=== PATIENT | female | born 1995 ===

== ENCOUNTER 2016-10-11 17:22 | Emergency (ER) | payer MEDICAID ==
[2016-10-11 17:55] VITALS: BMI 28.1
[2016-10-11 18:10] LABS: RBC URINE 4 /hpf (0-3); URINE BACTERIA RARE (<OCC); URINE BILIRUBIN NEGATIVE (NEGATIVE); URINE BLOOD NEGATIVE (NEGATIVE); URINE COLOR YELLOW (YELLOW); URINE GLUCOSE (UA) NEG (Normal); URINE KETONE 20 mg/dL (NEGATIVE); URINE LEUKOCYTE ESTERASE NEG Leu/uL (Negative); URINE PROTEIN NEGATIVE (NEGATIVE); URINE UROBILINOGEN 0.2-1.0 mg/dL (0.2-1.0); WBC URINE 2 /hpf (0-5)
--- NOTE | 2016-10-11 19:03 | US ---
PROCEDURE: Limited ultrasound to evaluate the cervical length HISTORY: pelvic pain and pressure COMPARISON: No prior similar study for comparison TECHNIQUE: Transabdominal ultrasound examination of the pelvis was obtained. FINDINGS: The cervix measures 4.5 centimeter contains trace fluid. IMPRESSION: 4.5 centimeter cervix contains trace fluid.
[2016-10-11] MEDS ORDERED: Lactated Ringer's 1,000 ML IV ONE ×2 (20:00→22:25)
[2016-10-11 22:01] VITALS: BP 122/69; PULSE 87; RESP 17; TEMP 98.2
--- NOTE | 2016-10-12 06:44 | OBHP ---
Datetime: 10/11/2016 18:10 IP Adm Impression: , intrauterine IP Admit Plan: Observation/Evaluation Admit Comment, IP Provider: 21 yo at 26+2 wks w/ EDC 01/15/3017 c/o a lot of pressure and p ain in pelvic area since last night, also c/o pain on the right side of her abdomen. Pt reports that she is not sure if she is having ctxns. Pt denies VB, LOF, reports FM. Pt reports that she is also concerned that she had a pot cookie by accident and wants to make sure the baby is ok. PMH: Healthy PSH: Appendectomy in 2006 Meds: None Fam hx: N/c Soc hx: Pt denies tobacco, alcohol and illicit drug use except for as above [employer] hx: 13 x regular, denies STDs, abn paps POb hx: 2015 female at 38 wks All: NKDA PE: AFVSS Gen'l: pt appears comfortable lying in bed Abd: soft, NT Ext: NT Speculum: FFN done VE: closed/ thick A/P: 21 yo at 26+2 wks w/ pain and pressure in pelvic area FHT reassuring UA negative except RBC 4 H . CL 4.5 Pt given IVF and tylenol for pain Extremities - PN: Normal Abdomen - PN: Normal Neurologic - PN: Normal General - PN: Normal FHR - Baseline A Provider: 140 Membranes, Provider: Intact Contraction Comments Provider: none EGA AdmitDate IP: 26.2 Vital Signs Provider: Reviewed IP Chief Complaint: Maternal discomfort NICHD Variability Prov Fetus A: Moderate 6-25bpm NICHD Decel Fetus A IP Provider: None Dilatation, Provider: 0 Effacement, Provider: 0 Station, Provider: -3 Genitourinary Exam: Normal
--- NOTE | 2016-10-12 06:51 | OBDCSUM ---
Datetime: 10/12/2016 06:44 Discharged to, Provider: Home Follow up at, Provider: [facility] Disch Instr Activity: Normal activity Disch Instr Diet: Regular Discharge Instructions, Provider: Routine instructions given Discharge Time: 10/12/2016 06:50 Discharge Time: 10/12/2016 06:47 Follow up in weeks, Provider: October 21 as per pt Disch Referrals: None Contraception discussed, Prov: No Discharge Diagnosis Prov Other: Abdomial pain at 26+ weeks Datetime: 10/11/2016 19:36 Discharged to, Provider: Home
--- NOTE | 2016-10-12 06:52 | OBPN ---
Datetime: 10/12/2016 06:44 IP Progress Impression Other: Abdominal pain at 26+ weeks IP Progress Plan: Discharge Membranes, Provider: Intact Contraction Comments Provider: None FHR - Baseline A Provider: 130 IP Progress Note Comment: 21 yo at 26+3 wks w/ abdominal pain and pressure, now feeling much better this am Pt given PTL precutions and discharged home Pt has an appointment at [facility] on 10/21/2016 Vital Signs Provider: Reviewed NICHD Variability Prov Fetus A: Moderate 6-25bpm NICHD Decel Fetus A IP Provider: None Datetime: 10/11/2016 18:10 Dilatation, Provider: 0 Effacement, Provider: 0 Station, Provider: -3
== END 2016-10-11 19:10 | disposition home or self-care (01) ==
LOC: H.EROB2 17:22
DX: O47.03 False labor before 37 completed weeks of gestation, third trimester (principal); Z3A.26 26 weeks gestation of pregnancy

== ENCOUNTER 2016-11-28 18:45 | Inpatient (IN) | payer MEDICAID ==
[2016-11-28 19:40] VITALS: BMI 29.9
[2016-11-28] MEDS ORDERED: Lactated Ringer's 1,000 ML IV SCH ×3 (19:41→19:45)
[2016-11-28] MEDS ORDERED: Magnesium Sulfate 4 gm/100 ml 4 GM/100 ML BAG IVPB ONE (19:48)
--- NOTE | 2016-11-28 19:50 | OBHP ---
Datetime: 11/28/2016 19:42 IP Adm Impression: , intrauterine IP Admit Plan: Initiate labor protocol Admit Comment, IP Provider: 25yo edc 01/15 by lmp _ 22wk us presents w/ c/o pelvic pressure int ermiittent and perisistent since last night. She denies srom, bleeding, decresed fm. no coitus x3day s state ob hx unremarkable obhx: x1 @ 38wks shx: denies etoh, tobacco, or illicit drugs pmhx: denies pshx: appy nkda medic: none i: 33.1wks ptl p: admit begin mgso4 betamethasone ampicillin Pelvic Type - PN: Adequate Extremities - PN: Normal Abdomen - PN: Normal Lungs - PN: Normal Heart - PN: Normal Neurologic - PN: Normal HEENT - PN: Normal General - PN: Normal Presentation-Admit: Vertex FHR - Baseline A Provider: 130 Contraction Comments Provider: q2-3min Comments, ACOG Physical Exam: bedside obus EGA AdmitDate IP: 33.1 Vital Signs Provider: Reviewed IP Chief Complaint: Other NICHD Variability Prov Fetus A: Moderate 6-25bpm NICHD Accel Fetus A IP Provider: 15X15 FHR Category Provider Fetus A: Category I Genitourinary Exam: Normal Datetime: 10/12/2016 06:44 Membranes, Provider: Intact NICHD Decel Fetus A IP Provider: None
[2016-11-28] MEDS ORDERED: Betamethasone Soluspan 30 mg/5mL Inj Susp IM ONE (19:53)
[2016-11-28] MEDS ORDERED: Ampicillin 2 GM in Sodium Chloride 0.9% 100 ML IVPB ONE (20:00)
[2016-11-28 20:18] LABS: BASO % 0.1 % (0.0-2.0); EOS % 0.2 % (0.0-4.0); HEMOGLOBIN 10.8 g/dL (12.0-16.0); LYMPH # 1.8 K/uL (1.0-4.3); LYMPH % 13.1 % (20.0-40.0); MEAN CELL VOLUME 81.5 fl (81.0-99.0); MEAN CORPUSCULAR HEMOGLOBIN 26.4 pg (27.0-31.0); MEAN CORPUSCULAR HGB CONC 32.4 g/dL (33.0-37.0); MEAN PLATELET VOLUME 9.2 fl (7.2-11.7); MONO # 0.9 K/uL (0.0-0.8); MONO % 6.6 % (0.0-10.0); RBC 4.08 Mil/uL (3.80-5.20); WHITE BLOOD COUNT 13.8 K/uL (4.8-10.8)
[2016-11-28 20:31] LABS: SQUAMOUS EPITHIAL 4 /hpf (0-5); URINE BACTERIA OCC (<OCC); URINE BILIRUBIN NEGATIVE (NEGATIVE); URINE BLOOD NEGATIVE (NEGATIVE); URINE CLARITY SLIGHTY-CLOUDY (Clear); URINE COLOR YELLOW (YELLOW); URINE GLUCOSE (UA) NEG (Normal); URINE LEUKOCYTE ESTERASE TRACE Leu/uL (Negative); URINE NITRATE NEGATIVE (NEGATIVE); URINE PROTEIN NEGATIVE (NEGATIVE); URINE UROBILINOGEN 0.2-1.0 mg/dL (0.2-1.0)
[2016-11-28 20:33] LABS: ALB/GLOB RATIO 1.2 (1.0-2.1); ALBUMIN 3.8 g/dL (3.5-5.0); ALT/SGPT 28 U/L (9-52); AST/SGOT 22 U/L (14-36); BLOOD UREA NITROGEN 5 mg/dl (7-17); CALCIUM 9.4 mg/dL (8.4-10.2); GFR AFRICAN-AMERICAN > 60; GFR NON-AFRICAN AMERICAN > 60
[2016-11-28 20:53] LABS: SPECIMEN COMMENT CLOUDY
[2016-11-28] MEDS ORDERED: AMPicillin 1 GM in Sodium Chloride 0.9% 100 ML IVPB SCH (21:00)
[2016-11-28] MEDS ORDERED: Magnesium Sul 40GM/1L SW 40 GM/1,000 ML ML IV ONE ×2 (22:06→22:10)
--- NOTE | 2016-11-29 00:16 | OBADHP ---
Datetime: 11/28/2016 21:57 Admit Comment, IP Provider: 25yo edc 01/15 by lmp _ 22wk us presents w/ c/o pelvic pressure int ermiittent and perisistent since last night. She denies srom, bleeding, decresed fm. no coitus x3day s state ob hx unremarkable obhx: x1 @ 38wks shx: denies etoh, tobacco, or illicit drugs pmhx: denies pshx: appy nkda medic: none i: 33.1wks threatened ptl p: admit begin mgso4 betamethasone ampicillin pt was d/w dr esteves who recommends d/c of mgso4 following 2nd dose of betamethasone and dischar ge home if not in ptl at that time Comments, ACOG Physical Exam: ffn neg Datetime: 11/28/2016 19:42 Pelvic Type - PN: Adequate Extremities - PN: Normal Abdomen - PN: Normal Lungs - PN: Normal Heart - PN: Normal Neurologic - PN: Normal HEENT - PN: Normal General - PN: Normal Presentation-Admit: Vertex FHR - Baseline A Provider: 130 Contraction Comments Provider: q2-3min Vital Signs Provider: Reviewed IP Chief Complaint: Other NICHD Variability Prov Fetus A: Moderate 6-25bpm NICHD Accel Fetus A IP Provider: 15X15 FHR Category Provider Fetus A: Category I Genitourinary Exam: Normal EGA AdmitDate IP: 33.1 IP Adm Impression: , intrauterine IP Admit Plan: Initiate labor protocol Datetime: 10/12/2016 06:44 Membranes, Provider: Intact NICHD Decel Fetus A IP Provider: None Datetime: 10/11/2016 18:10 Dilatation, Provider: 0 Effacement, Provider: 0 Station, Provider: -3
[2016-11-29] MEDS: Ampicillin 2 GM in Sodium Chloride 0.9% 100 ML IVPB SCH ×2 (04:37→13:00)
--- NOTE | 2016-11-29 14:04 | OBDCSUM ---
Datetime: 11/29/2016 13:59 Discharged to, Provider: Home Follow up at, Provider: [facility] Disch Instr Activity: May be up to bathroom; May be up for meals Disch Instr Diet: Regular Discharge Instructions, Provider: Routine instructions given Discharge Diagnosis, Provider: False Labor - Undelivered Discharge Time: 11/29/2016 14:00 Follow up in weeks, Provider: as per schedule next week Disch Referrals: None Contraception discussed, Prov: No Disch Activity Restrictions: No exercising Discharge Comment, Provider: Return at 9pm for Betamethasone F/U in clinic next week Return to hospital if increased bleeding, pain, contractions, decreased movement Contraception after Delivery: Undecided
--- NOTE | 2016-11-29 14:04 | OBPN ---
Datetime: 11/29/2016 13:57 IP Progress Plan: Discharge Contraction Comments Provider: none FHR - Baseline A Provider: 130 IP Progress Note Comment: Patient evaluated this morning and discussed plan of care. Patient is asym ptomatic, feels well, does not feel pressure or contractions. FHR= 130 mod christine, +accels, no decels, n o contractions. NO new signs of labor. Patient has been on MagSO4 for almost 14 hours. Patient receiv ed Beta around 9pm last night. Patient does not appeart to have contractions or be in labor. Patient to be discharged, labor precautions, f/u in clinic next week for regular sche duled appointment. Patient to come back tonight for Betamethasone Vital Signs Provider: Reviewed NICHD Accel Fetus A IP Provider: 15X15 NICHD Variability Prov Fetus A: Moderate 6-25bpm NICHD Decel Fetus A IP Provider: None Datetime: 11/28/2016 19:42 Presentation-Admit: Vertex FHR Category Provider Fetus A: Category I
== END 2016-11-29 14:05 | disposition home or self-care (01) | DRG 382 ==
LOC: H.EROB2 18:45 → H.L&D 19:41
PROVIDERS: ADMIT Obstetrics & Gynecology; ATTEND Obstetrics & Gynecology
PROC: 4A1HXCZ Monitoring of Products of Conception, Cardiac Rate, External Approach (ICD-10-PCS; principal; 2016-11-28)
DX: O47.02 False labor before 37 completed weeks of gestation, second trimester (principal); Z3A.22 22 weeks gestation of pregnancy

== ENCOUNTER 2016-11-29 20:35 | Emergency (ER) | payer MEDICAID ==
[2016-11-29] MEDS ORDERED: Betamethasone Soluspan 30 mg/5mL Inj Susp IM ONE (20:58)
--- NOTE | 2016-11-29 21:59 | OBHP ---
Datetime: 11/29/2016 21:54 IP Adm Impression: , intrauterine IP Admit Plan: Observation/Evaluation; Discharge home Admit Comment, IP Provider: Patient is a @ 33.2 wks with contractions who was monito red yesterday, was given Betamethasone and MgSO4 and discharged home. patient has returned for monito ring and Betamethasone 12mg IM injection. Patient reports on/off contractions but overall feels comfo rtable, no vaginal bleeding, no leaking, +FM, no new signs of labor, no abdominal pain on palpation. Patient was given Betamethasone 12mg IM, VE=1/thick/high, ZRP=399 mod christine, +accels, no decels. TOCO= ctxning q 10 mins. Patient no additional signs of labor, will discharge home, labor p recautions, f/u in clinic next week Pelvic Type - PN: Adequate Extremities - PN: Normal Abdomen - PN: Normal Back - PN: Normal Breast - PN: Normal Lungs - PN: Normal Heart - PN: Normal Thyroid - PN: Normal Neurologic - PN: Normal HEENT - PN: Normal General - PN: Normal FHR - Baseline A Provider: 140 Contraction Comments Provider: q 10 mins EGA AdmitDate IP: 33.2 Vital Signs Provider: Reviewed; Within Normal Limits IP Chief Complaint: Uterine contractions NICHD Variability Prov Fetus A: Moderate 6-25bpm NICHD Accel Fetus A IP Provider: [id number] NICHD Decel Fetus A IP Provider: None Dilatation, Provider: 1 Effacement, Provider: thick Station, Provider: high Genitourinary Exam: Normal DTRs - PN: Normal Datetime: 11/28/2016 21:57 Comments, ACOG Physical Exam: ffn neg
--- NOTE | 2016-11-29 21:59 | OBDCSUM ---
Datetime: 11/29/2016 21:46 Discharged to, Provider: Home Follow up at, Provider: [facility] Disch Instr Activity: Normal activity Disch Instr Diet: Regular Discharge Diagnosis, Provider: False Labor - Undelivered Discharge Time: 11/29/2016 21:46 Follow up in weeks, Provider: CALL FOR APPOINTMENT SOON POSSIBLE Disch Referrals: None Disch Activity Restrictions: No lifting Discharge Comment, Provider: return if increased bleeding, ctxns, leaking Datetime: 11/29/2016 13:59 Discharged to, Provider: Home Follow up at, Provider: [facility] Disch Instr Activity: May be up to bathroom; May be up for meals Disch Instr Diet: Regular Discharge Instructions, Provider: Routine instructions given Discharge Diagnosis, Provider: False Labor - Undelivered Discharge Time: 11/29/2016 14:00 Follow up in weeks, Provider: as per schedule next week Disch Referrals: None Contraception discussed, Prov: No Disch Activity Restrictions: No exercising Discharge Comment, Provider: Return at 9pm for Betamethasone F/U in clinic next week Return to hospital if increased bleeding, pain, contractions, decreased movement Contraception after Delivery: Undecided
[2016-11-30 12:11] VITALS: BMI 32.0
== END 2016-11-29 21:50 | disposition home or self-care (01) ==
LOC: H.EROB2 20:35
DX: O47.9 False labor, unspecified (principal)

== ENCOUNTER 2016-12-03 19:32 | Emergency (ER) | payer MEDICAID ==
[2016-12-03 19:54] VITALS: BMI 29.9
[2016-12-03 20:52] LABS: SQUAMOUS EPITHIAL 1 /hpf (0-5); URINE BACTERIA OCC (<OCC); URINE BILIRUBIN NEGATIVE (NEGATIVE); URINE BLOOD NEGATIVE (NEGATIVE); URINE CLARITY SLIGHTY-CLOUDY (Clear); URINE COLOR YELLOW (YELLOW); URINE GLUCOSE (UA) NEG (Normal); URINE LEUKOCYTE ESTERASE TRACE Leu/uL (Negative); URINE NITRATE NEGATIVE (NEGATIVE); URINE PROTEIN NEGATIVE (NEGATIVE); URINE UROBILINOGEN 0.2-1.0 mg/dL (0.2-1.0)
--- NOTE | 2016-12-03 20:53 | OBHP ---
Datetime: 12/03/2016 20:25 IP Adm Impression: , intrauterine ; No Active Labor; Intact Membranes IP Admit Plan: Observation/Evaluation Admit Comment, IP Provider: 21yo IUP at 33+w 6d (EDC Jan 15) c/o lower abd pain since earli er today. nonradiating; no medds taken... pain is similar to last week. She came and was admitted, given MgSO4 and steroids. No medsd given to go home with. She ranulfo having intercourse past 24h PNC: [facility] (undocumented) PMH: denies PSH: denies NKA POBH: x 1 uncomplicated - 38w PGYNH: denies STD A: IUP at 33w threatened PTL S/P two dose Steroids last week PLAN: IVF check UA and FFN discussion with patient about condition, management and treatment...she understood and her questio ns answered Pelvic Type - PN: Adequate Extremities - PN: Normal Abdomen - PN: Normal Back - PN: Normal Breast - PN: Not Done Lungs - PN: Normal Heart - PN: Normal Thyroid - PN: Normal Neurologic - PN: Normal HEENT - PN: Normal General - PN: Normal Presentation-Admit: Vertex IP Fetus A Comments: Sonogram ceph FHR - Baseline A Provider: 120 Membranes, Provider: Intact Contraction Comments Provider: occ Comments, ACOG Physical Exam: SSE: no discharge Cx closed SVE external os 1cm internal closed ROS: General: no weakness; no fatigue HEENT: no SALINAS; no visual dist CV: no CP no palpitations Resp: no cough no SOB GI: no N/V/D : No F/U/D Pool Provider: Negative IP Hx Assessment: Undocumented [facility] EGA AdmitDate IP: 33.6 IP Chief Complaint: Uterine contractions NICHD Variability Prov Fetus A: Moderate 6-25bpm NICHD Accel Fetus A IP Provider: [id number] FHR Category Provider Fetus A: Category I NICHD Decel Fetus A IP Provider: None Dilatation, Provider: 0 Effacement, Provider: 0 Station, Provider: high Genitourinary Exam: Normal DTRs - PN: Normal
[2016-12-03] MEDS: Lactated Ringer's 1,000 ML IV SCH ×2 (21:00→21:57)
--- NOTE | 2016-12-03 23:29 | OBDCSUM ---
Datetime: 12/03/2016 22:23 Discharged to, Provider: Home Follow up at, Provider: [facility] Disch Instr Activity: Normal activity Disch Instr Diet: Regular Discharge Instructions, Provider: Routine instructions given Discharge Diagnosis, Provider: False Labor - Undelivered Discharge Time: 12/03/2016 22:24 Follow up in weeks, Provider: coming friday as scheduled Disch Referrals: None Contraception discussed, Prov: No Disch Activity Restrictions: No lifting; Minimize stair-climbing; No sexual activity; Nothing in vag tito - [employer], tampons, douche Discharge Comment, Provider: FFN and UA neg
== END 2016-12-03 22:35 | disposition home or self-care (01) ==
LOC: H.EROB2 19:32 → H.EROB 19:47 → H.EROB2 22:35
DX: O47.03 False labor before 37 completed weeks of gestation, third trimester (principal); Z3A.33 33 weeks gestation of pregnancy; O09.93 Supervision of high risk pregnancy, unspecified, third trimester

== ENCOUNTER 2016-12-30 04:11 | Emergency (ER) | payer MEDICAID ==
--- NOTE | 2016-12-30 08:46 | OBDCSUM ---
Datetime: 12/30/2016 07:40 Discharged to, Provider: Home Follow up at, Provider: [facility] Disch Instr Activity: Normal activity Disch Instr Diet: Regular Discharge Diagnosis, Provider: False Labor - Undelivered Discharge Time: 12/30/2016 07:44 Follow up in weeks, Provider: 01/02/17 Disch Referrals: None
--- NOTE | 2016-12-30 08:46 | OBHP ---
Datetime: 12/30/2016 08:33 IP Adm Impression: Term, intrauterine IP Admit Plan: Observation/Evaluation; Discharge home Admit Comment, IP Provider: Patient is a @ 37.5 wks with back pain and lower abdominal cramp s. Patient denies vaginal bleeding, +FM, no leaking. VE=3-4/70/-3, unchanged after a few hours. FHR = 125 mod christine, +accels, no decels. TOCO = ctxning q 8-10 mins. Patient observed for a few hours and co ntractions resolved. Patient does not appear to be in labor, will discharge home, discharge instructi ons reviewed Pelvic Type - PN: Adequate Extremities - PN: Normal Abdomen - PN: Normal Back - PN: Normal Breast - PN: Normal Lungs - PN: Normal Heart - PN: Normal Thyroid - PN: Normal Neurologic - PN: Normal HEENT - PN: Normal General - PN: Normal FHR - Baseline A Provider: 125 Contraction Comments Provider: q 8-10 mins EGA AdmitDate IP: 37.5 Vital Signs Provider: Reviewed; Within Normal Limits IP Chief Complaint: Uterine contractions NICHD Variability Prov Fetus A: Moderate 6-25bpm NICHD Accel Fetus A IP Provider: [id number] NICHD Decel Fetus A IP Provider: None Dilatation, Provider: 3-4 Effacement, Provider: 70 Station, Provider: -3 Genitourinary Exam: Normal DTRs - PN: Normal
[2016-12-30 13:03] VITALS: BP 102/71; PULSE 76; RESP 18; TEMP 97.2
== END 2016-12-30 07:40 | disposition home or self-care (01) ==
LOC: H.EROB2 04:11
DX: O47.1 False labor at or after 37 completed weeks of gestation (principal); Z3A.37 37 weeks gestation of pregnancy

== ENCOUNTER 2016-12-30 23:12 | Inpatient (IN) | payer MEDICAID ==
[2016-12-31] MEDS ORDERED: Lactated Ringer's 1,000 ML IV SCH ×2 (00:30)
[2016-12-31 00:48] VITALS: RESP 16; TEMP 98.4
[2016-12-31 02:43] LABS: HEMOGLOBIN 10.3 g/dL (12.0-16.0); MEAN CELL VOLUME 80.4 fl (81.0-99.0); MEAN CORPUSCULAR HEMOGLOBIN 26.8 pg (27.0-31.0); MEAN CORPUSCULAR HGB CONC 33.4 g/dL (33.0-37.0); RBC 3.82 Mil/uL (3.80-5.20); RED CELL DISTRIBUTION WIDTH 15.8 % (11.5-14.5); WHITE BLOOD COUNT 9.1 K/uL (4.8-10.8)
--- NOTE | 2016-12-31 05:18 | OBADHP ---
Datetime: 12/31/2016 01:54 Pelvic Type - PN: Adequate Extremities - PN: Normal Abdomen - PN: Normal Back - PN: Normal Lungs - PN: Normal Heart - PN: Normal Thyroid - PN: Normal Neurologic - PN: Normal HEENT - PN: Normal General - PN: Normal FHR - Baseline A Provider: 144 Membranes, Provider: Intact Contraction Comments Provider: 6-8mi Vital Signs Provider: Reviewed IP Chief Complaint: Uterine contractions NICHD Variability Prov Fetus A: Moderate 6-25bpm NICHD Accel Fetus A IP Provider: 15X15 FHR Category Provider Fetus A: Category I NICHD Decel Fetus A IP Provider: None Dilatation, Provider: 4 Effacement, Provider: 60 Station, Provider: -2 Genitourinary Exam: Normal EGA AdmitDate IP: 37.6 IP Adm Impression: Active labor IP Admit Plan: Admit to unit; Initiate labor protocol Datetime: 12/31/2016 01:37 Admit Comment, IP Provider: A 21 y/o F, , [place] 37.6 and KYLEIGH 01/15/17 by her last LMP/US, comes to t he ED c/o ctx and pain 7/10 in severity. pt feels nauseated since dinner. pt feels "cold like symptom es" and runny nose since morning. pt denies fever, chills, SOB or chest pain -negative LOF/ + small amount BV/+CTX/ +FM PNC: [facility] PNI: no issues with so far POBH: 1xSNVD, term PGYN:none U/S- last us at 22 weeks PMH: none PSH: appendectomy Meds: none, stopped PNV few months back due to Nausea associated with PNV All: none SH: no alcohol or smoking or drug use VS: 141/77 FHR: 144 PE: unremarkable 4-5cm dil, 60%,-2 A: A 21 y/o F, , [place] 37.6 and KYLEIGH 01/15/17 by her last LMP/US, comes to the ED c/o ctx and pain P: monitor VS and FHR Admit pt to L_D f/u HIV/RPR f/u type_screen and CBC will place epidural case discussed with Dr. Carr -- Donita Majano, PGY-1 ob[facility] addendum: pt seen _examined by me. agree with above assessment and plan with following changes repeat exam showed no 4cm/60% firm posterior -3 @4:41 p: d/c home labor precautions pt advised to obtain copy of prenatl records kick counts. DTRs - PN: Normal Datetime: 12/30/2016 08:33 Breast - PN: Normal Datetime: 12/03/2016 20:25 Presentation-Admit: Vertex IP Fetus A Comments: Sonogram ceph Comments, ACOG Physical Exam: SSE: no discharge Cx closed SVE external os 1cm internal closed ROS: General: no weakness; no fatigue HEENT: no SALINAS; no visual dist CV: no CP no palpitations Resp: no cough no SOB GI: no N/V/D : No F/U/D Pool Provider: Negative IP Hx Assessment: Undocumented [facility]
--- NOTE | 2016-12-31 05:22 | OBDCSUM ---
Datetime: 12/31/2016 05:19 Discharged to, Provider: Home Follow up at, Provider: [facility] Disch Instr Activity: Normal activity Disch Instr Diet: Regular Discharge Instructions, Provider: Routine instructions given Discharge Diagnosis, Provider: False Labor - Undelivered Discharge Time: 12/31/2016 05:19 Follow up in weeks, Provider: as scheduled Contraception discussed, Prov: No Discharge Comment, Provider: labor precautions Discharge Diagnosis Prov Other: 37 wks Datetime: 12/30/2016 07:40 Discharge Instructions, Provider: Routine instructions given Contraception discussed, Prov: No
[2016-12-31 10:02] VITALS: BP 141/77; PULSE 106; O2SAT 100
== END 2016-12-31 05:00 | disposition home or self-care (01) | DRG 382 ==
LOC: H.EROB2 23:12 → H.L&D 12-31 00:30
PROVIDERS: ADMIT Obstetrics & Gynecology; ATTEND Obstetrics & Gynecology
DX: O47.1 False labor at or after 37 completed weeks of gestation (principal); Z3A.37 37 weeks gestation of pregnancy

== ENCOUNTER 2017-01-09 10:38 | Emergency (ER) | payer MEDICAID ==
[2017-01-09 11:08] VITALS: BMI 33.5
--- NOTE | 2017-01-09 11:59 | OBHP ---
Datetime: 01/09/2017 11:45 IP Adm Impression: Term, intrauterine IP Admit Plan: Observation/Evaluation; Discharge home Admit Comment, IP Provider: 21 y/o F, , [place] 39.1 and KYLEIGH 01/15/17 by her last LMP _US @ 22wks pres ents w/ c/o abd discomfort and increase in abd pain and ctxs since yesterday morning. Pt states she w as eval on Friday, 01/06, for c/o possible leakage and Exam was neg for srom and us showed nl dominga. Sh e denies gush of fluid, no coitus x_3wks. Reports good fm, intermittent painful ctxs. she states pre g is getting more uncomfortable w/ increased abd pressure. OBHX: non compliance with this preg- pt did not do glucose screen and missed some appts 2013 PSHX: Appy 2005 pmHX: DENIES NKDA MEDIC: PNV i: 39.1wks no labor present p: labor precautions kick counts Need 3rd trim RPR from clinic Comments, ACOG Physical Exam: GBS NEG/ RI _VZI HEPB NEG/; HIV NR X2 O+ 09/02 RPR NEG sse: no liquid in vault with and without valsalva +thickened cervical mucus per os tinged with brown blood. no active bleeding EGA AdmitDate IP: 39.1 Vital Signs Provider: Reviewed IP Chief Complaint: Maternal discomfort Datetime: 12/31/2016 01:54 Presentation-Admit: Vertex
== END 2017-01-09 11:45 | disposition home or self-care (01) ==
LOC: H.EROB2 10:38
DX: O47.1 False labor at or after 37 completed weeks of gestation (principal); Z3A.39 39 weeks gestation of pregnancy